=== PATIENT | male | born 1955 | race Caucasian/White ===

== ENCOUNTER 2017-01-04 12:11 | Emergency (ER) | payer OTHER ==
[~2017-01-04] VITALS: Ht 182.9 cm; Wt 88.4 kg
[2017-01-04 12:21] VITALS: TEMP 36.6; Ht 182.9 cm; Wt 88.4 kg
[2017-01-04] MEDS ORDERED: ONDANSETRON INJ 2 MG/ML 2 ML VIAL IV STA (13:17)
[2017-01-04] MEDS ORDERED: SODIUM CHLORIDE 0.9% 1000ML 1,000 ML IV STA (13:17)
[2017-01-04] MEDS ORDERED: MoRPHine SULFATE 4 MG/ML 1 ML CARP\\VIAL IV PRN (13:30)
[2017-01-04] MEDS ORDERED: OPTIRAY 320 IV PRN (13:30)
--- NOTE | 2017-01-04 13:36 | DIAGNOSTIC IMAGING REPORT ---
CHEST ONE VIEW PORTABLE CLINICAL HISTORY: Generalized abdominal pain COMPARISON STUDY: No previous studies for comparison. FINDINGS: The cardiac and mediastinal contours are normal. There is no evidence of focal pulmonary consolidation. There is no evidence of failure. No pleural effusions are visualized.[ No free air is visualized. IMPRESSION: No active disease in the chest. Electronically signed by: Himanshu Mendez M.D. 01/04/2017 1:35 PM Dictated Date/Time: 01/04/2017 1:34 PM
[2017-01-04] MEDS ORDERED: METO-217 PO (13:47)
[2017-01-04] MEDS ORDERED: AMLO2.5T PO (13:47)
[2017-01-04] MEDS ORDERED: ALL300 PO (13:47)
[2017-01-04] MEDS ORDERED: VENL1CAP92 PO (13:47)
[2017-01-04] MEDS ORDERED: VENL150C56 PO (13:47)
[2017-01-04 13:51] LABS: BASO % 0.7 %; BASO ABS # 0.05 K/uL (0-0.2); COMPLETE YES; EOS % 0.3 %; IG% 0.3 %; LYMPH % 16.8 %; LYMPH ABS # 1.22 K/uL (1.2-3.4); MEAN CORPUSCULAR HEMOGLOBIN 30.2 pg (25-34); MEAN CORPUSCULAR HGB CONC 35.1 g/dl (32-36); MEAN PLATELET VOLUME 10.4 fL (7.4-10.4); MONO % 5.9 %; PLATELET COUNT 234 K/uL (130-400); RED BLOOD COUNT 5.23 M/uL (4.7-6.1); WHITE BLOOD COUNT 7.26 K/uL (4.8-10.8)
[2017-01-04 13:57] VITALS: O2SAT 99
[2017-01-04 14:00] LABS: PARTIAL THROMBOPLASTIN RATIO 1.1; PROTHROMBIN TIME (PATIENT) 10.7 SECONDS (9.0-12.0)
[2017-01-04 14:14] LABS: BUN/CREATININE RATIO 12.1 (10-20); CALCIUM 9.4 mg/dl (8.5-10.1); CREATININE 1.1 mg/dl (0.60-1.40); POTASSIUM 3.3 mmol/L (3.5-5.1)
[2017-01-04 14:29] LABS: URINE APPEARANCE CLEAR (CLEAR); URINE COLOR DK YELLOW; URINE NITRITE NEG (NEG); URINE PH 5.5 (4.5-7.5); URINE SPECIFIC GRAVITY 1.031 (1.000-1.030); UROBILINOGEN NEG (NEG); ZZUR CULT IF INDIC CLEAN CATCH NO
[2017-01-04 14:36] LABS: MANUAL MICROSCOPIC REQUIRED? NO; REVIEW REQ? NO; URINE BILIRUBIN NEG (NEG)
--- NOTE | 2017-01-04 14:44 | DIAGNOSTIC IMAGING REPORT ---
CT ABD/PELVIS IV CONTRAST ONLY CLINICAL HISTORY: Right-sided abdominal pain COMPARISON STUDY: None. TECHNIQUE: Following the IV administration of 93 mL of Optiray-320, CT scan of the abdomen and pelvis was performed from the lung bases to the proximal femurs. Images are reviewed in the axial, sagittal, and coronal planes. IV contrast was administered without complication. CT DOSE: 619.11 mGy.cm FINDINGS: Lower chest: There are mild dependent atelectatic changes. Liver: The contrast-enhanced liver is normal in size, contour, and attenuation. There is no intrahepatic biliary ductal dilatation. The hepatic veins and portal veins are patent. Gallbladder: Unremarkable. Spleen: The spleen is the upper limits of normal in size measuring 12 cm. Pancreas: Unremarkable. Adrenal glands: Unremarkable. Kidneys: There is a 19 mm upper pole right renal cyst. No solid renal masses are visualized. Bowel: There are no transition zones indicate a high-grade bowel obstruction. There is no acute diverticulitis. The appendix appears normal. There are proximal jejunal loops at the upper limits of normal in diameter containing air-fluid levels. A discrete transition zone is not visualized. This may indicate a mild ileus. Peritoneum: There is no intraperitoneal free air or abdominal ascites. Vasculature: The abdominal aorta is normal in course and caliber. Adenopathy: None. Pelvic viscera: The bladder, and pelvic viscera are unremarkable. Skeletal structures: No destructive osseous lesions are seen. IMPRESSION: 1. Mildly prominent jejunal loops containing air-fluid levels. A discrete transition zone is not visualized. The findings likely represent an ileus, although a low-grade partial small bowel obstruction could appear similar. 2. No evidence of free air 3. Normal appendix 4. No evidence of acute diverticulitis. Electronically signed by: Himanshu Mendez M.D. 01/04/2017 2:42 PM Dictated Date/Time: 01/04/2017 2:37 PM
--- NOTE | 2017-01-04 15:38 | DIAGNOSTIC IMAGING REPORT ---
Right upper quadrant ultrasound GALLBLADDER-ABD LIMITED CLINICAL HISTORY: ABDOMINAL PAIN/GI nausea TECHNIQUE: Ultrasound COMPARISON STUDY: None FINDINGS: Normal gallbladder. Common bile duct 4 mm. Liver is uniform. Poor visibility of the pancreas. Right kidney is negative for hydronephrosis. 2 cm upper pole cyst. IMPRESSION: Small right renal cyst. Otherwise negative study. Electronically signed by: Nilson Lopes M.D. 01/04/2017 3:37 PM Dictated Date/Time: 01/04/2017 3:36 PM
[2017-01-04] MEDS ORDERED: ONDA4TAB10 SL (16:16)
--- NOTE | 2017-01-04 16:17 | EMERGENCY ROOM VISIT NOTE ---
History Report prepared by Ophelia: Tiffany Chris Under the Supervision of: Dr. Segun Harrison D.O. First contact with patient: 13:10 Chief Complaint: ABDOMINAL PAIN Stated Complaint: GALLBLADDER PAIN Nursing Triage Summary: abd pain and vomiting for 4 days, fever/chills, seen by pcp, + murphys sign, r/ o gallbladder History of Present Illness The patient is a 61 year old male who presents to the Emergency Room with complaints of persistent right upper quadrant abdominal pain that began four days ago. He currently rates his discomfort as a 9/10 in severity. The patient states that he felt normal on Tuesday, but states that he woke up Tuesday around 0300 he woke up with the pain. He additionally associates nausea and vomiting with his symptoms today. The patient states that he has noticed a bitter taste in his throat. He additionally notes back pain today. The patient states that drinking worsens his discomfort. The patient denies any previous abdominal surgeries. He states that he takes any anti-depressant, but has not been able to keep the medication down for the past four days. The patient states that he consulted his PCP today and yesterday and was referred to the emergency department for further testing. He takes that he has a history of hypertension and gout as well. Source of History: patient Onset: four days ago Position: abdomen (RUQ) Symptom Intensity: 9/10 Timing: other (persistent) Modifying Factors (Worsening): drinking Associated Symptoms: + back pain, + nausea, + vomiting Review of Systems See HPI for pertinent positives & negatives. A total of 10 systems reviewed and were otherwise negative. Past Medical & Surgical Medical Problems: (1) Hypertension Family History Cancer Gallbladder disease Hypertension Social History Smoking Status: Never Smoker Smokeless Tobacco Use: Yes Alcohol Use: none Marital Status: Housing Status: lives with significant other Current/Historical Medications Scheduled Allopurinol (Allopurinol), 300 MG PO DAILY Amlodipine Besylate (Norvasc), Unknown Dose PO DAILY Metoprolol Succinate (Toprol Xl), 50 MG PO DAILY Venlafaxine Hcl (Effexor Extended Rel), 150 MG PO DAILY Venlafaxine Hcl (Effexor Xr), 37.5 MG PO DAILY Allergies Coded Allergies: ALLERGY2 (Unverified Allergy, Unknown, 10/06/03) Uncoded Allergies: ASA (Allergy, Unknown, 10/05/03) FLU SHOT (Allergy, Unknown, 10/05/03) PCN (Allergy, Unknown, 10/05/03) Physical Exam Vital Signs Date Time Temp Pulse Resp B/P Pulse Ox O2 Delivery O2 Flow Rate FiO2 01/04/17 14:21 50 18 157/84 95 Room Air 01/04/17 13:57 99 Room Air 01/04/17 13:56 56 18 151/79 99 Room Air 01/04/17 12:21 36.6 51 18 163/87 98 Room Air Physical Exam CONSTITUTIONAL/VITAL SIGNS: Reviewed / noted above. GENERAL: Non-toxic in appearance. INTEGUMENTARY: Warm, dry, and Debary. HEAD: Normocephalic. EYES: without scleral icterus or trauma. ENT/OROPHARYNX: clear and moist. LYMPHADENOPATHY/NECK: Is supple without lymphadenopathy or meningismus. RESPIRATORY: Lungs clear and equal. CARDIOVASCULAR: Regular rate and rhythm. GI/ABDOMEN: Soft and nontender. No organomegaly or pulsatile mass. No rebound or guarding. Normal bowel sounds. EXTREMITIES: Warm and well perfused. BACK: No CVA tenderness. NEUROLOGICAL: Intact without focal deficits. PSYCHIATRIC: normal affect. MUSCULOSKELETAL: Normally developed with good muscle tone. Medical Decision & Procedures ER Provider Diagnostic Interpretation: Radiology results as stated below per my review and radiologist interpretation: Right upper quadrant ultrasound GALLBLADDER-ABD LIMITED CLINICAL HISTORY: ABDOMINAL PAIN/GI nausea TECHNIQUE: Ultrasound COMPARISON STUDY: None FINDINGS: Normal gallbladder. Common bile duct 4 mm. Liver is uniform. Poor visibility of the pancreas. Right kidney is negative for hydronephrosis. 2 cm upper pole cyst. IMPRESSION: Small right renal cyst. Otherwise negative study. Electronically signed by: Nilson Lopes M.D. 01/04/2017 3:37 PM Dictated Date/Time: 01/04/2017 3:36 PM CHEST ONE VIEW PORTABLE CLINICAL HISTORY: Generalized abdominal pain COMPARISON STUDY: No previous studies for comparison. FINDINGS: The cardiac and mediastinal contours are normal. There is no evidence of focal pulmonary consolidation. There is no evidence of failure. No pleural effusions are visualized.[ No free air is visualized. IMPRESSION: No active disease in the chest. Electronically signed by: Himanshu Mendez M.D. 01/04/2017 1:35 PM Dictated Date/Time: 01/04/2017 1:[address] ABD/PELVIS IV CONTRAST ONLY CLINICAL HISTORY: Right-sided abdominal pain COMPARISON STUDY: None. TECHNIQUE: Following the IV administration of 93 mL of Optiray-320, CT scan of the abdomen and pelvis was performed from the lung bases to the proximal femurs. Images are reviewed in the axial, sagittal, and coronal planes. IV contrast was administered without complication. CT DOSE: 619.11 mGy.cm FINDINGS: Lower chest: There are mild dependent atelectatic changes. Liver: The contrast-enhanced liver is normal in size, contour, and attenuation. There is no intrahepatic biliary ductal dilatation. The hepatic veins and portal veins are patent. Gallbladder: Unremarkable. Spleen: The spleen is the upper limits of normal in size measuring 12 cm. Pancreas: Unremarkable. Adrenal glands: Unremarkable. Kidneys: There is a 19 mm upper pole right renal cyst. No solid renal masses are visualized. Bowel: There are no transition zones indicate a high-grade bowel obstruction. There is no acute diverticulitis. The appendix appears normal. There are proximal jejunal loops at the upper limits of normal in diameter containing air-fluid levels. A discrete transition zone is not visualized. This may indicate a mild ileus. Peritoneum: There is no intraperitoneal free air or abdominal ascites. Vasculature: The abdominal aorta is normal in course and caliber. Adenopathy: None. Pelvic viscera: The bladder, and pelvic viscera are unremarkable. Skeletal structures: No destructive osseous lesions are seen. IMPRESSION: 1. Mildly prominent jejunal loops containing air-fluid levels. A discrete transition zone is not visualized. The findings likely represent an ileus, although a low-grade partial small bowel obstruction could appear similar. 2. No evidence of free air 3. Normal appendix 4. No evidence of acute diverticulitis. Electronically signed by: Himanshu Mendez M.D. 01/04/2017 2:42 PM Dictated Date/Time: 01/04/2017 2:37 PM Laboratory Results 01/04/17 13:20 Red Blood Count 5.23, Mean Corpuscular Volume 86.0, Mean Corpuscular Hemoglobin 30.2, Mean Corpuscular Hemoglobin Concent 35.1, Mean Platelet Volume 10.4, Neutrophils (%) (Auto) 76.0, Lymphocytes (%) (Auto) 16.8, Monocytes (%) (Auto) 5.9, Eosinophils (%) (Auto) 0.3, Basophils (%) (Auto) 0.7, Neutrophils # (Auto) 5.52, Lymphocytes # (Auto) 1.22, Monocytes # (Auto) 0.43, Eosinophils # (Auto) 0.02, Basophils # (Auto) 0.05 01/04/17 13:20 Test 01/04/17 13:20 01/04/17 13:30 White Blood Count 7.26 K/uL (4.8-10.8) Red Blood Count 5.23 M/uL (4.7-6.1) Hemoglobin 15.8 g/dL (14.0-18.0) Hematocrit 45.0 % (42-52) Mean Corpuscular Volume 86.0 fL (80-100) Mean Corpuscular Hemoglobin 30.2 pg (25-34) Mean Corpuscular Hemoglobin Concent 35.1 g/dl (32-36) Platelet Count 234 K/uL (130-400) Mean Platelet Volume 10.4 fL (7.4-10.4) Neutrophils (%) (Auto) 76.0 % Lymphocytes (%) (Auto) 16.8 % Monocytes (%) (Auto) 5.9 % Eosinophils (%) (Auto) 0.3 % Basophils (%) (Auto) 0.7 % Neutrophils # (Auto) 5.52 K/uL (1.4-6.5) Lymphocytes # (Auto) 1.22 K/uL (1.2-3.4) Monocytes # (Auto) 0.43 K/uL (0.11-0.59) Eosinophils # (Auto) 0.02 K/uL (0-0.5) Basophils # (Auto) 0.05 K/uL (0-0.2) RDW Standard Deviation 42.4 fL (36.4-46.3) RDW Coefficient of Variation 13.5 % (11.5-14.5) Immature Granulocyte % (Auto) 0.3 % Immature Granulocyte # (Auto) 0.02 K/uL (0.00-0.02) Prothrombin Time 10.7 SECONDS (9.0-12.0) Prothromb Time International Ratio 1.0 (0.9-1.1) Activated Partial Thromboplast Time 27.6 SECONDS (21.0-31.0) Partial Thromboplastin Ratio 1.1 Anion Gap 8.0 mmol/L (3-11) Est Creatinine Clear Calc Drug Dose 76.4 ml/min Estimated GFR () 82.9 Estimated GFR (Non- 71.6 BUN/Creatinine Ratio 12.1 (10-20) Calcium Level 9.4 mg/dl (8.5-10.1) Total Bilirubin 1.0 mg/dl (0.2-1) Direct Bilirubin 0.2 mg/dl (0-0.2) Aspartate Amino Transf (AST/SGOT) 13 U/L (15-37) Alanine Aminotransferase (ALT/SGPT) 21 U/L (12-78) Alkaline Phosphatase 108 U/L (45-117) Total Protein 8.2 gm/dl (6.4-8.2) Albumin 4.3 gm/dl (3.4-5.0) Lipase 433 U/L (73-393) Urine Color DK YELLOW Urine Appearance CLEAR (CLEAR) Urine pH 5.5 (4.5-7.5) Urine Specific [place] 1.031 (1.000-1.030) Urine Protein 1+ (NEG) Urine Glucose (UA) NEG (NEG) Urine Ketones TRACE (NEG) Urine Occult Blood NEG (NEG) Urine Nitrite NEG (NEG) Urine Bilirubin NEG (NEG) Urine Urobilinogen NEG (NEG) Urine Leukocyte Esterase NEG (NEG) Urine WBC (Auto) 1-5 /hpf (0-5) Urine RBC (Auto) 0-4 /hpf (0-4) Urine Hyaline Casts (Auto) 5-10 /lpf (0-5) Urine Epithelial Cells (Auto) 10-20 /lpf (0-5) Urine Bacteria (Auto) NEG (NEG) Laboratory results as stated above per my review. Medications Administered Medications (Trade) Dose Ordered Sig/Natasha Route Start Time Stop Time Status Last Admin Dose Admin Sodium Chloride (Nss 1000ml) 1,000 ml @ 999 mls/hr Q1H1M STAT IV 01/04/17 13:17 01/04/17 14:17 DC 01/04/17 13:57 999 MLS/HR Ondansetron HCl (Zofran Inj) 4 mg NOW STAT IV 01/04/17 13:17 01/04/17 13:20 DC 01/04/17 13:58 4 MG Morphine Sulfate (MoRPHine SULFATE INJ) 4 mg Q1H PRN IV 01/04/17 13:30 01/18/17 13:29 3/28/17 13:58 4 MG ED Course 1314: Previous medical records were reviewed. The patient was evaluated in room B6. A complete history and physical examination was performed. 1317: Ordered Zofran Inj 4 mg IV, Sodium Chloride 1000 ml @ 999 mls/hr IV. 1330: Ordered Morphine Sulfate 4 mg IV. 1601: I reevaluated the patient and he is resting comfortably. I discussed the exam findings with him and I discussed the treatment plan. He verbalized complete understanding and agreement. The patient is ready to go home. Medical Decision Differential considered: pancreatitis, hepatitis, or acute cholecystitis, AAA, UTI, pyelonephritis, kidney stones, appendicitis, diverticulitis, shingles, bowel obstruction mesenteric ischemia, intussusception,hernia, testicular torsion. This is a 61-year-old male who presents the ED with a chief complaint of right- sided abdominal pain. He has had a for 3 days and reports associated nausea and vomiting. His vital signs are normal. Ultrasound of the gallbladder did not show any acute abnormality. CT scan of the abdomen and pelvis revealed a ileus of the jejunal area but otherwise nothing acute. Chest x-ray, CBC, complete metabolic panel and lipase were normal. Urine did not show infection. The patient was treated with IV fluids, IV morphine and IV Zofran. He was feeling better. He was discharged on Zofran. Impression Primary Impression: Right lower quadrant abdominal pain Additional Impression: Right upper quadrant abdominal pain Scribe Attestation The scribe's documentation has been prepared under my direction and personally reviewed by me in its entirety. I confirm that the note above accurately reflects all work, treatment, procedures, and medical decision making performed by me. Departure Information Dispostion Home / Self-Care Prescriptions Ondasetron Odt (ZOFRAN ODT) 4 Mg Tab 4 MG SL Q6H for Nausea, #15 TAB Prov: Segun Harrison D.O. 01/04/17 Referrals No Doctor, Assigned (PCP) Patient Instructions Abdominal Pain, My [facility] Additional Instructions Zofran: Allow one tablet to dissolve under the tongue every 6 hours as needed for nausea or vomiting. Follow-up with your doctor for further care and evaluation in 1-2 days. Return to the emergency department for worsening or new symptoms or any concerns. You have been examined and treated today on an emergency basis only. This is not a substitute for, or an effort to provide, complete comprehensive medical care. It is impossible to recognize and treat all injuries or illnesses in a single emergency department visit. It is therefore important that you follow up closely with your doctor. Call as soon as possible for an appointment. Problem Qualifiers
[2017-01-04 16:37] VITALS: BP 142/83; PULSE 54; O2SAT 98
== END 2017-01-04 16:38 | disposition home or self-care (01) ==
LOC: C.EDB 12:15
DX: R10.11 Right upper quadrant pain (principal); R11.2 Nausea with vomiting, unspecified; I10 Essential (primary) hypertension; Z82.49 Family history of ischemic heart disease and other diseases of the circulatory system; Z79.899 Other long term (current) drug therapy